=== PATIENT | female | born 1940 | race Hispanic/Latino ===

== ENCOUNTER → 2019-09-03 | Outpatient (CLI) | payer OTHER ==
[~2019-09-03] MED LIST: ALBU90AE IH; ATOR10 PO; CALC1TAB3 PO; CLON0.5T23 PO; D3 PO; ESOM40CA PO; FISH,FLAX,BORAGE OIL PO; FLUT16H NASAL; GABA-529 PO; LORA10TA7 PO; LOSA25TA41 PO; MELO-106 PO; MULT-1258 PO; OXYB5TAB15 PO; SERT100T12 PO
--- NOTE | 2019-09-03 09:45 | NUR ---
MBSS COMPLETED. PENETRATION WITH THIN AND MIXED TEXTURES. RECOMMEND MECHANICAL SOFT/CHOPPED, NECTAR-THICK LIQUIDS; PILLS WHOLE WITH LIQUIDS. RESULTS AND RECOMMENDATIONS PROVIDED VIA HANDOUT. ALL QUESTIONS ANSWERED A THIS TIME. Pt PROVIDED WITH A CAN OF THICKENER WITH INSTRUCTIONS ON HOW TO REACH NECTAR-THICK LIQUIDS. SKILLED SPEECH THERAPY IS RECOMMENDED AT THIS TIME. Addendum: 09/03/19 at [address] [facility] Amended: Links added.
== END | disposition home or self-care (01) ==
LOC: RAH 08:26
PROVIDERS: ATTEND Internal Medicine
DX: R13.13 Dysphagia, pharyngeal phase (principal); M62.50 Muscle wasting and atrophy, not elsewhere classified, unspecified site; R47.9 Unspecified speech disturbances
CPT/HCPCS: 74230; 92611

== ENCOUNTER → 2022-04-19 | Outpatient (CLI) | payer OTHER ==
[~2022-04-19] MED LIST changes: +SERT-440 PO; -SERT100T12 PO
== END | disposition home or self-care (01) ==
LOC: RAH 09:05
PROVIDERS: ATTEND Internal Medicine Gastroenterology
DX: R13.10 Dysphagia, unspecified (principal); R13.12 Dysphagia, oropharyngeal phase; R63.30 Feeding difficulties, unspecified
CPT/HCPCS: 74230; 92611